=== PATIENT | male | born 1940 | race Caucasian/White ===

== ENCOUNTER 2017-07-09 11:56 | Emergency (ER) | payer MEDICARE, OTHER ==
[~2017-07-09] VITALS: Ht 170.2 cm; Wt 75.0 kg
[2017-07-09 14:42] LABS: BASOPHILS % 0.3 % (0.0-2.0); EOSINOPHILS % 1.2 % (0.0-5.0); HEMATOCRIT. 45.1 % (42.0-52.0); HEMOGLOBIN. 15.1 g/dL (14.0-18.0); LYMPHOCYTES % 7.8 % (20.0-50.0); MEAN CORPUSCULAR HEMOGLOBIN 30.6 pg (28.0-32.0); MEAN CORPUSCULAR VOLUME 91.7 fL (80.0-94.0); MEAN PLATELET VOLUME 8.6 fl (7.4-10.4); MONOCYTES % 7.2 % (2.0-8.0); NEUTROPHILS % 83.5 % (40.0-76.0); PLATELET 186 x1000/uL (130-400); RED BLOOD CELL COUNT 4.92 mill/uL (4.7-6.1); RED CELL DISTRIBUTION WIDTH 14.9 % (11.6-14.6)
[2017-07-09 14:46] LABS: PROTHROMBIN TIME 10.6 sec (9.4-11.6)
[2017-07-09 14:53] LABS: CHLORIDE 106 mEq/L (98-107)
[2017-07-09 14:59] LABS: CLARITY URINE CLOUDY (CLEAR); COLOR URINE DARK YELLOW (YELLOW); KETONES URINE NEGATIVE (NEGATIVE); LEUKOCYTE ESTERASE URINE NEGATIVE (NEGATIVE); NITRITE URINE NEGATIVE (NEGATIVE); OCCULT BLOOD URINE NEGATIVE (NEGATIVE); PROTEIN URINE 1+ (NEGATIVE); SPECIFIC GRAVITY URINE 1.022 (1.005-1.030); UROBILINOGEN URINE 0.2 E.U./dL (0.2-1.0)
[2017-07-09 16:36] VITALS: BP 158/67
== END 2017-07-09 16:46 | disposition home or self-care (01) ==
LOC: ER 12:31
DX: N43.3 Hydrocele, unspecified (principal); Z90.49 Acquired absence of other specified parts of digestive tract; Z85.840 Personal history of malignant neoplasm of eye
CPT/HCPCS: 36415; 76870; 80053; 81001; 85025; 85610; 93976; 99285

== ENCOUNTER 2017-10-10 20:55 | Emergency (ER) | payer MEDICARE, OTHER ==
[~2017-10-10] VITALS: Ht 177.8 cm; Wt 107.0 kg
[2017-10-11 01:15] VITALS: BP 136/78
== END 2017-10-11 01:16 | disposition home or self-care (01) ==
LOC: ER 21:43
DX: R60.0 Localized edema (principal); Z90.49 Acquired absence of other specified parts of digestive tract; Z98.890 Other specified postprocedural states
CPT/HCPCS: 99283

== ENCOUNTER 2019-05-06 14:12 | Emergency (ER) | payer MEDICARE, OTHER ==
[~2019-05-06] VITALS: Ht 165.1 cm; Wt 100.0 kg
[2019-05-06] MEDS ORDERED: KETOROLAC 30MG/ML VIAL IM ONE (21:30)
[2019-05-06 23:08] VITALS: BP 165/92
[2019-05-08] MEDS ORDERED: FURO-151 MT (04:45)
[2019-05-08] MEDS ORDERED: LISI2.5T47 MT (04:45)
== END 2019-05-06 23:10 | disposition home or self-care (01) ==
LOC: ER 14:12
DX: G89.29 Other chronic pain (principal); M54.5 Low back pain; I10 Essential (primary) hypertension; Z90.49 Acquired absence of other specified parts of digestive tract
CPT/HCPCS: 96372; 99283; J1885

== ENCOUNTER 2020-04-14 19:20 | Inpatient (IN) | payer MEDICARE, OTHER ==
[~2020-04-14] VITALS: Ht 170.2 cm; Wt 104.3 kg
[2020-04-14 19:20] VITALS: BP 146/80
[~2020-04-14 19:20] MED LIST: FURO-151 MT; LISI2.5T47 MT
[2020-04-14] MEDS: FAMOTIDINE 20MG TABLET PO SCH (22:27)
[2020-04-14] MEDS: ENOXAPARIN 30MG/0.3ML SYR SUBCUT SCH (22:28)
[2020-04-14] MEDS: LISINOPRIL 20MG TABLET PO SCH (22:28)
[2020-04-14] MEDS: SULFAMETHOXAZOLE/TRIMETHOPRIM 800/160MG TABLET PO SCH (22:28)
[2020-04-15] MEDS ORDERED: CLONIDINE 0.1MG TABLET PO PRN (02:00)
[2020-04-15] MEDS ORDERED: ZOLPIDEM TARTRATE 5MG TABLET PO PRN (02:00)
[2020-04-15] MEDS ORDERED: GUAIFENESIN 200MG/10ML SUGAR FREE UDC PO PRN (02:00)
[2020-04-15] MEDS ORDERED: ONDANSETRON HCL 4MG TABLET PO PRN (02:00)
[2020-04-15] MEDS ORDERED: MAGNESIUM/ALUMINUM HYDROXIDE/SIMETHICONE 30ML UDC PO PRN (02:00)
[2020-04-15] MEDS ORDERED: ACETAMINOPHEN 325MG TABLET PO PRN (02:00)
[2020-04-15 08:00] VITALS: BP 119/77
[2020-04-15] MEDS: DOCUSATE SODIUM 100MG CAPSULE PO SCH ×2 (09:00→17:30)
[2020-04-15] MEDS: SULFAMETHOXAZOLE/TRIMETHOPRIM 800/160MG TABLET PO SCH ×2 (10:49→20:39)
[2020-04-15] MEDS: FUROSEMIDE 40MG TABLET PO SCH (10:50)
[2020-04-15] MEDS: SODIUM CHLORIDE 0.9% INJ 3ML FLUSH IVF SCH ×3 (10:50→21:31)
[2020-04-15] MEDS: MAGNESIUM HYDROXIDE 400MG/5ML 30ML UDC PO PRN (10:51)
[2020-04-15] MEDS: ENOXAPARIN 30MG/0.3ML SYR SUBCUT SCH ×2 (10:52→21:30)
[2020-04-15] MEDS: LISINOPRIL 20MG TABLET PO SCH ×2 (10:53→20:39)
[2020-04-15] MEDS: POTASSIUM CHLORIDE 20MEQ TABLET SR PO SCH (10:56)
[2020-04-15 20:00] VITALS: BP 112/57
[2020-04-15] MEDS: FAMOTIDINE 20MG TABLET PO SCH (20:39)
[2020-04-15] MEDS: ALPRAZOLAM 0.25 MG TABLET PO PRN (21:57)
[2020-04-16] MEDS: MAGNESIUM HYDROXIDE 400MG/5ML 30ML UDC PO PRN (05:37)
[2020-04-16] MEDS: SODIUM CHLORIDE 0.9% INJ 3ML FLUSH IVF SCH ×3 (05:37→22:57)
[2020-04-16 08:00] VITALS: BP 125/73
[2020-04-16] MEDS: DOCUSATE SODIUM 100MG CAPSULE PO SCH ×2 (09:27→17:30)
[2020-04-16] MEDS: POTASSIUM CHLORIDE 20MEQ TABLET SR PO SCH (09:27)
[2020-04-16] MEDS: LISINOPRIL 20MG TABLET PO SCH ×2 (09:27→20:47)
[2020-04-16] MEDS: FUROSEMIDE 40MG TABLET PO SCH (09:28)
[2020-04-16] MEDS: SULFAMETHOXAZOLE/TRIMETHOPRIM 800/160MG TABLET PO SCH ×2 (09:28→20:47)
[2020-04-16] MEDS: ENOXAPARIN 30MG/0.3ML SYR SUBCUT SCH ×2 (09:28→20:48)
[2020-04-16] MEDS ORDERED: BISACODYL 10MG SUPP PR PRN (11:30)
[2020-04-16] MEDS ORDERED: NA PHOS,M-B/NA PHOS,DI-BA ENEMA 118ML PR PRN ×2 (12:45→13:45)
[2020-04-16] MEDS: LACTULOSE 20G/30ML UDC PO SCH ×2 (12:50→13:55)
[2020-04-16 20:00] VITALS: BP 125/68
[2020-04-16] MEDS: FAMOTIDINE 20MG TABLET PO SCH (20:47)
[2020-04-16] MEDS: ALPRAZOLAM 0.25 MG TABLET PO PRN (22:56)
[2020-04-17] MEDS ORDERED: LACTULOSE 20G/30ML UDC PO PRN
[2020-04-17] MEDS: SODIUM CHLORIDE 0.9% INJ 3ML FLUSH IVF SCH (06:46)
[2020-04-17 08:30] VITALS: BP 124/75
[2020-04-17] MEDS: FUROSEMIDE 40MG TABLET PO SCH (09:21)
[2020-04-17] MEDS: LISINOPRIL 20MG TABLET PO SCH ×2 (09:21→20:52)
[2020-04-17] MEDS: POTASSIUM CHLORIDE 20MEQ TABLET SR PO SCH (09:21)
[2020-04-17] MEDS: SULFAMETHOXAZOLE/TRIMETHOPRIM 800/160MG TABLET PO SCH ×2 (09:22→20:47)
[2020-04-17] MEDS: ENOXAPARIN 30MG/0.3ML SYR SUBCUT SCH ×2 (09:22→20:46)
[2020-04-17 20:00] VITALS: BP 114/70
[2020-04-17] MEDS: FAMOTIDINE 20MG TABLET PO SCH (20:46)
[2020-04-17] MEDS: ALPRAZOLAM 0.25 MG TABLET PO PRN (22:06)
[2020-04-18 08:28] VITALS: BP 133/79
[2020-04-18] MEDS: ENOXAPARIN 30MG/0.3ML SYR SUBCUT SCH ×2 (09:52→20:23)
[2020-04-18] MEDS: SULFAMETHOXAZOLE/TRIMETHOPRIM 800/160MG TABLET PO SCH ×2 (09:52→20:25)
[2020-04-18] MEDS: FUROSEMIDE 40MG TABLET PO SCH (09:52)
[2020-04-18] MEDS: LISINOPRIL 20MG TABLET PO SCH ×2 (09:52→20:24)
[2020-04-18] MEDS: POTASSIUM CHLORIDE 20MEQ TABLET SR PO SCH (09:52)
[2020-04-18 20:00] VITALS: BP 143/69
[2020-04-18] MEDS: FAMOTIDINE 20MG TABLET PO SCH (20:24)
[2020-04-18] MEDS: ALPRAZOLAM 0.25 MG TABLET PO PRN (20:25)
[2020-04-19 08:00] VITALS: BP 99/65
[2020-04-19] MEDS: POTASSIUM CHLORIDE 20MEQ TABLET SR PO SCH (08:24)
[2020-04-19] MEDS: FUROSEMIDE 40MG TABLET PO SCH (08:24)
[2020-04-19] MEDS: SULFAMETHOXAZOLE/TRIMETHOPRIM 800/160MG TABLET PO SCH ×2 (08:24→21:42)
[2020-04-19] MEDS: ENOXAPARIN 30MG/0.3ML SYR SUBCUT SCH ×2 (08:26→21:56)
[2020-04-19] MEDS: LISINOPRIL 20MG TABLET PO SCH ×2 (08:27→21:43)
[2020-04-19 20:00] VITALS: BP 138/78
[2020-04-19] MEDS: ALPRAZOLAM 0.25 MG TABLET PO PRN (21:42)
[2020-04-19] MEDS: FAMOTIDINE 20MG TABLET PO SCH (21:42)
[2020-04-20 07:56] VITALS: BP 117/67
[2020-04-20] MEDS: POTASSIUM CHLORIDE 20MEQ TABLET SR PO SCH (08:01)
[2020-04-20] MEDS: FUROSEMIDE 40MG TABLET PO SCH (08:01)
[2020-04-20] MEDS: LISINOPRIL 20MG TABLET PO SCH ×2 (08:01→21:00)
[2020-04-20] MEDS: ENOXAPARIN 30MG/0.3ML SYR SUBCUT SCH ×2 (08:01→21:56)
[2020-04-20 20:00] VITALS: BP 100/52
[2020-04-20] MEDS: FAMOTIDINE 20MG TABLET PO SCH (21:55)
[2020-04-20] MEDS: ALPRAZOLAM 0.25 MG TABLET PO PRN (23:42)
[2020-04-21] MEDS: FUROSEMIDE 40MG TABLET PO SCH (08:26)
[2020-04-21] MEDS: POTASSIUM CHLORIDE 20MEQ TABLET SR PO SCH (08:26)
[2020-04-21] MEDS: LISINOPRIL 20MG TABLET PO SCH ×2 (08:27→21:56)
[2020-04-21 08:30] VITALS: BP 103/80
[2020-04-21] MEDS: ENOXAPARIN 30MG/0.3ML SYR SUBCUT SCH ×2 (08:32→21:57)
[2020-04-21 20:08] VITALS: BP 117/55
[2020-04-21] MEDS: FAMOTIDINE 20MG TABLET PO SCH (21:56)
[2020-04-21] MEDS: PANTOT AC/MIN OIL/PET HY-PHL OINT (AQUAPHOR) TOP SCH (22:01)
[2020-04-21] MEDS: ALPRAZOLAM 0.25 MG TABLET PO PRN (22:40)
[2020-04-22 06:17] LABS: BASOPHILS % 0.6 % (0.0-2.0); EOSINOPHILS % 2.1 % (0.0-5.0); HEMATOCRIT. 47.6 % (42.0-52.0); LYMPHOCYTES % 12.6 % (20.0-50.0); MEAN CORPUSCULAR HEMOGLOBIN 32.5 pg (28.0-32.0); MEAN CORPUSCULAR VOLUME 96.7 fL (80.0-94.0); MONOCYTES % 8.9 % (2.0-8.0); NEUTROPHILS % 75.8 % (40.0-76.0); PLATELET 259 x1000/uL (130-400); RED BLOOD CELL COUNT 4.93 mill/uL (4.7-6.1); RED CELL DISTRIBUTION WIDTH 13.9 % (11.6-14.6)
[2020-04-22 08:28] VITALS: BP 116/61
[2020-04-22] MEDS: FUROSEMIDE 40MG TABLET PO SCH (08:33)
[2020-04-22] MEDS: ENOXAPARIN 30MG/0.3ML SYR SUBCUT SCH ×2 (08:34→21:11)
[2020-04-22] MEDS: POTASSIUM CHLORIDE 20MEQ TABLET SR PO SCH (08:34)
[2020-04-22] MEDS: PANTOT AC/MIN OIL/PET HY-PHL OINT (AQUAPHOR) TOP SCH (08:34)
[2020-04-22] MEDS: LISINOPRIL 20MG TABLET PO SCH ×2 (08:34→21:00)
[2020-04-22 20:00] VITALS: BP 102/62
[2020-04-22] MEDS: FAMOTIDINE 20MG TABLET PO SCH (21:11)
[2020-04-22] MEDS: ALPRAZOLAM 0.25 MG TABLET PO PRN (22:31)
[2020-04-23 08:00] VITALS: BP 105/63
[2020-04-23] MEDS: PANTOT AC/MIN OIL/PET HY-PHL OINT (AQUAPHOR) TOP SCH (08:48)
[2020-04-23] MEDS: POTASSIUM CHLORIDE 20MEQ TABLET SR PO SCH (08:49)
[2020-04-23] MEDS: ENOXAPARIN 30MG/0.3ML SYR SUBCUT SCH ×2 (08:49→21:40)
[2020-04-23] MEDS: LISINOPRIL 20MG TABLET PO SCH ×2 (08:49→21:40)
[2020-04-23] MEDS: FUROSEMIDE 40MG TABLET PO SCH (08:49)
[2020-04-23 20:00] VITALS: BP 116/69
[2020-04-23] MEDS: FAMOTIDINE 20MG TABLET PO SCH (21:40)
[2020-04-23] MEDS: ALPRAZOLAM 0.25 MG TABLET PO PRN (21:45)
[2020-04-24 08:00] VITALS: BP 138/84
[2020-04-24] MEDS: LISINOPRIL 20MG TABLET PO SCH (08:19)
[2020-04-24] MEDS: FUROSEMIDE 40MG TABLET PO SCH (08:19)
[2020-04-24] MEDS: POTASSIUM CHLORIDE 20MEQ TABLET SR PO SCH (08:19)
[2020-04-24] MEDS: PANTOT AC/MIN OIL/PET HY-PHL OINT (AQUAPHOR) TOP SCH (08:20)
[2020-04-24] MEDS: ENOXAPARIN 30MG/0.3ML SYR SUBCUT SCH (08:20)
[2020-04-24 09:29] VITALS: BP 138/84
== END 2020-04-24 10:50 | disposition home health service (06) | DRG 947 ==
PROVIDERS: ADMIT Psychiatry & Neurology Neurology; ATTEND Internal Medicine
DX: R53.81 Other malaise (principal); K57.93 Diverticulitis of intestine, part unspecified, without perforation or abscess with bleeding; L03.116 Cellulitis of left lower limb; L03.115 Cellulitis of right lower limb; I82.402 Acute embolism and thrombosis of unspecified deep veins of left lower extremity; I82.811 Embolism and thrombosis of superficial veins of right lower extremity; A04.72 Enterocolitis due to Clostridium difficile, not specified as recurrent; E87.1 Hypo-osmolality and hyponatremia; M48.56XA Collapsed vertebra, not elsewhere classified, lumbar region, initial encounter for fracture; I73.9 Peripheral vascular disease, unspecified; M21.962 Unspecified acquired deformity of left lower leg; M21.961 Unspecified acquired deformity of right lower leg; I87.2 Venous insufficiency (chronic) (peripheral); I11.9 Hypertensive heart disease without heart failure; I87.8 Other specified disorders of veins; B36.9 Superficial mycosis, unspecified; I25.10 Atherosclerotic heart disease of native coronary artery without angina pectoris; J44.9 Chronic obstructive pulmonary disease, unspecified; M19.90 Unspecified osteoarthritis, unspecified site; K57.90 Diverticulosis of intestine, part unspecified, without perforation or abscess without bleeding; Z90.49 Acquired absence of other specified parts of digestive tract; Z95.0 Presence of cardiac pacemaker
CPT/HCPCS: 36415; 80048; 85025; 97110; 97112; 97116; 97162; 97166; 97530; 97535; J1650

== ENCOUNTER 2022-03-09 14:45 | Emergency (ER) | payer MEDICARE, OTHER ==
[~2022-03-09] VITALS: Ht 167.6 cm; Wt 82.0 kg
[~2022-03-09 14:45] MED LIST changes: -LISI2.5T47 MT
[2022-03-09] MEDS ORDERED: PIPERACILLIN/TAZ 3.375G PREMIX 50 ML IV ONE (17:00)
[2022-03-09 17:20] LABS: BASOPHILS % 0.3 % (0.0-2.0); EOSINOPHILS % 1.9 % (0.0-5.0); HEMATOCRIT. 42.6 % (42.0-52.0); HEMOGLOBIN. 14.5 g/dL (14.0-18.0); LYMPHOCYTES % 9.8 % (20.0-50.0); MEAN CORPUSCULAR HEMOGLOBIN 32.4 pg (28.0-32.0); MEAN CORPUSCULAR VOLUME 94.9 fL (80.0-94.0); MEAN PLATELET VOLUME 8.6 fl (7.4-10.4); MONOCYTES % 6.4 % (2.0-8.0); NEUTROPHILS % 81.6 % (40.0-76.0); PLATELET 210 x1000/uL (130-400); RED BLOOD CELL COUNT 4.49 mill/uL (4.7-6.1)
[2022-03-09 17:21] LABS: CHLORIDE 109 mEq/L (98-107)
[2022-03-09 17:37] LABS: PROTHROMBIN TIME 10.8 sec (9.6-11.0)
[2022-03-09 19:05] LABS: CLARITY URINE CLEAR (CLEAR); COLOR URINE DARK YELLOW (YELLOW); KETONES URINE 1+ (NEGATIVE); LEUKOCYTE ESTERASE URINE TRACE (NEGATIVE); NITRITE URINE NEGATIVE (NEGATIVE); OCCULT BLOOD URINE NEGATIVE (NEGATIVE); PH URINE 6.5 (4.5-8.0); PROTEIN URINE TRACE (NEGATIVE); UROBILINOGEN URINE 0.2 E.U./dL (0.2-1.0)
[2022-03-09 21:00] VITALS: BP 166/90
== END 2022-03-09 21:20 | disposition home or self-care (01) ==
LOC: ER 14:45
DX: R53.1 Weakness (principal); R63.0 Anorexia; I10 Essential (primary) hypertension; R94.31 Abnormal electrocardiogram [ECG] [EKG]; Z68.29 Body mass index [BMI] 29.0-29.9, adult; Z85.828 Personal history of other malignant neoplasm of skin
CPT/HCPCS: 36415; 71045; 80053; 81003; 85025; 86850; 86900; 93005; 99285

== ENCOUNTER 2022-08-04 10:08 | Inpatient (IN) | payer MEDICARE, OTHER ==
[~2022-08-04] VITALS: Ht 172.7 cm; Wt 82.6 kg
[~2022-08-04 10:08] MED LIST changes: -FURO-151 MT; +OMEP20CA14 MT; +SUCR1TAB30 MT
[2022-08-04 11:47] LABS: HEMOGLOBIN. 14.8 g/dL (14.0-18.0); MEAN CORPUSCULAR HEMOGLOBIN 32.7 pg (28.0-32.0); MEAN CORPUSCULAR VOLUME 95.4 fL (80.0-94.0); MEAN PLATELET VOLUME 9.8 fl (7.4-10.4); PLATELET 234 x1000/uL (130-400); RED BLOOD CELL COUNT 4.51 mill/uL (4.7-6.1); RED CELL DISTRIBUTION WIDTH 14.3 % (11.6-14.6)
[2022-08-04 11:53] LABS: CHLORIDE 108 mEq/L (98-107)
[2022-08-04 12:14] LABS: PLATELET ESTIMATE NORMAL
[2022-08-04] MEDS ORDERED: SODIUM CHLORIDE 0.9% 1,000 ML IV ONE (12:45)
[2022-08-04 14:08] LABS: CLARITY URINE CLEAR (CLEAR); COLOR URINE YELLOW (YELLOW); KETONES URINE TRACE (NEGATIVE); LEUKOCYTE ESTERASE URINE NEGATIVE (NEGATIVE); NITRITE URINE NEGATIVE (NEGATIVE); OCCULT BLOOD URINE NEGATIVE (NEGATIVE); PROTEIN URINE TRACE (NEGATIVE); SPECIFIC GRAVITY URINE 1.013 (1.005-1.030); UROBILINOGEN URINE 0.2 E.U./dL (0.2-1.0)
[2022-08-04] MEDS ORDERED: GUAIFENESIN 200MG/10ML SUGAR FREE UDC PO PRN (17:45)
[2022-08-04] MEDS ORDERED: DOCUSATE SODIUM 100MG CAPSULE PO PRN (17:45)
[2022-08-04] MEDS ORDERED: MAGNESIUM/ALUMINUM HYDROXIDE/SIMETHICONE 30ML UDC PO PRN (17:45)
[2022-08-04] MEDS ORDERED: LORAZEPAM 0.5MG TABLET PO PRN (17:45)
[2022-08-04] MEDS ORDERED: ACETAMINOPHEN 325MG TABLET PO PRN ×2 (17:45)
[2022-08-04] MEDS ORDERED: ONDANSETRON HCL 4MG/2ML INJ IV PRN (17:45)
[2022-08-04] MEDS ORDERED: VANCOMYCIN 1G PREMIX 200 ML IV SCH (17:45)
[2022-08-04] MEDS ORDERED: IPRATROPIUM/ALBUTEROL 0.5-3(2.5)MG/3ML NEB HHN PRN (17:45)
[2022-08-04] MEDS ORDERED: CLONIDINE 0.1MG TABLET PO PRN (17:45)
[2022-08-04] MEDS ORDERED: HYDROCODONE/ACETAMINOPHEN 5/325MG TABLET PO PRN (17:45)
[2022-08-04] MEDS ORDERED: PIPERACILLIN/TAZ 3.375G PREMIX 50 ML IV NR (18:11)
[2022-08-04] MEDS ORDERED: VANCOMYCIN 1500MG in DEXTROSE 5% WATER 250ML IV SCH (18:30)
[2022-08-04] MEDS ORDERED: SODIUM POLYSTYRENE SULFONATE 15 G/60 ML BOT PO NR (19:00)
[2022-08-04] MEDS: FAMOTIDINE 20MG/2ML VIAL IV SCH (22:09)
[2022-08-04] MEDS: ENOXAPARIN 40MG/0.4ML SYR SUBCUT SCH (22:14)
[2022-08-04] MEDS: AMLODIPINE 10MG TABLET PO SCH (22:19)
[2022-08-04] MEDS: DEXT 5%/0.45% NACL 1000ML 1,000 ML IV SCH (23:30)
[2022-08-05] VITALS: BP 146/78
[2022-08-05 04:00] VITALS: BP 150/95
[2022-08-05] MEDS ORDERED: PIPERACILLIN/TAZOBACTAM 3.375 G in DEXTROSE 5% WATER 50 ML IV SCH (06:00)
[2022-08-05 09:00] LABS: BASOPHILS % 0.3 % (0.0-2.0); EOSINOPHILS % 1.6 % (0.0-5.0); LYMPHOCYTES % 7.1 % (20.0-50.0); MEAN CORPUSCULAR HEMOGLOBIN 31.8 pg (28.0-32.0); MEAN CORPUSCULAR VOLUME 95.1 fL (80.0-94.0); MONOCYTES % 8.5 % (2.0-8.0); NEUTROPHILS % 82.5 % (40.0-76.0); PLATELET 197 x1000/uL (130-400); RED BLOOD CELL COUNT 4.73 mill/uL (4.7-6.1); RED CELL DISTRIBUTION WIDTH 13.9 % (11.6-14.6)
[2022-08-05] MEDS ORDERED: VANCOMYCIN 750MG PREMIX 150 ML IV SCH (09:00)
[2022-08-05] MEDS ORDERED: FUROSEMIDE 40MG/4ML VIAL IV SCH (09:00)
[2022-08-05] MEDS: AMLODIPINE 10MG TABLET PO SCH (09:08)
[2022-08-05] MEDS: FAMOTIDINE 20MG/2ML VIAL IV SCH ×2 (09:08→23:00)
[2022-08-05 09:25] LABS: CHLORIDE 107 mEq/L (98-107)
[2022-08-05 09:41] LABS: HDL CHOLESTEROL 40 mg/dL (40-59); LDL CHOLESTEROL 104 mg/dL (5-100); T4 FREE 1.08 ng/dL (0.76-1.46)
[2022-08-05] MEDS: VANCOMYCIN 750MG PREMIX 150 ML IV SCH ×2 (11:19→23:01)
[2022-08-05] MEDS: PIPERACILLIN/TAZOBACTAM 3.375 G in DEXTROSE 5% WATER 50 ML IV SCH ×3 (11:19→23:14)
[2022-08-05 12:00] VITALS: BP 168/98
[2022-08-05 16:00] VITALS: BP 127/69
[2022-08-05] MEDS ORDERED: ALBUTEROL (0.083%) 2.5MG/3ML NEB HHN PRN (16:15)
[2022-08-05] MEDS ORDERED: IPRATROPIUM BROMIDE (0.02%) 0.5MG/2.5ML NEB HHN PRN (16:15)
[2022-08-05] MEDS ORDERED: NALOXONE HCL 0.4MG/ML VIAL IV PRN (16:15)
[2022-08-05] MEDS: LOSARTAN POTASSIUM 25 MG TABLET PO SCH (17:15)
[2022-08-05] MEDS: DEXT 5%/0.45% NACL 1000ML 1,000 ML IV SCH (18:30)
[2022-08-05 20:00] VITALS: BP 148/65
[2022-08-05] MEDS: ENOXAPARIN 40MG/0.4ML SYR SUBCUT SCH (23:00)
[2022-08-06] VITALS: BP 137/71
[2022-08-06 04:00] VITALS: BP 162/79
[2022-08-06] MEDS: PIPERACILLIN/TAZOBACTAM 3.375 G in DEXTROSE 5% WATER 50 ML IV SCH ×3 (05:46→22:37)
[2022-08-06 07:24] LABS: CHLORIDE 110 mEq/L (98-107)
[2022-08-06 08:00] VITALS: BP 164/86
[2022-08-06] MEDS: AMLODIPINE 10MG TABLET PO SCH (09:06)
[2022-08-06] MEDS: VANCOMYCIN 750MG PREMIX 150 ML IV SCH (09:06)
[2022-08-06] MEDS: FAMOTIDINE 20MG/2ML VIAL IV SCH (10:45)
[2022-08-06 12:00] VITALS: BP 133/73
[2022-08-06 16:00] VITALS: BP 123/65
[2022-08-06] MEDS: LOSARTAN POTASSIUM 25 MG TABLET PO SCH (17:12)
[2022-08-06 20:00] VITALS: BP 148/80
[2022-08-06] MEDS ORDERED: MEDICATION NOT ON FORMULARY EA (MELATONIN 3 MG) PO SCH (21:00)
[2022-08-06] MEDS: FAMOTIDINE 20MG TABLET PO SCH (22:37)
[2022-08-06] MEDS: ENOXAPARIN 40MG/0.4ML SYR SUBCUT SCH (22:37)
[2022-08-06] MEDS: MELATONIN 3MG TABLET PO SCH (22:37)
[2022-08-07] VITALS: BP 119/57
[2022-08-07 04:00] VITALS: BP 146/83
[2022-08-07] MEDS: VANCOMYCIN 1G PREMIX 200 ML IV SCH ×2 (05:22→23:26)
[2022-08-07] MEDS: PIPERACILLIN/TAZOBACTAM 3.375 G in DEXTROSE 5% WATER 50 ML IV SCH ×3 (07:00→21:43)
[2022-08-07] MEDS ORDERED: POTASSIUM CHLORIDE 20MEQ TABLET SR PO NR (08:30)
[2022-08-07] MEDS: FAMOTIDINE 20MG TABLET PO SCH ×2 (08:45→21:42)
[2022-08-07] MEDS: AMLODIPINE 10MG TABLET PO SCH (08:45)
[2022-08-07 12:00] VITALS: BP 103/70
[2022-08-07] MEDS: OLANZAPINE 5MG TABLET ODT PO SCH ×2 (14:25→18:42)
[2022-08-07 16:00] VITALS: BP 122/67
[2022-08-07] MEDS ORDERED: LOSA25TA3 PO (17:02)
[2022-08-07] MEDS ORDERED: AMLO10TA80 PO (17:02)
[2022-08-07] MEDS ORDERED: OLAN5TAB6 PO (17:02)
[2022-08-07] MEDS ORDERED: DOXY150T5 MT (17:03)
[2022-08-07] MEDS ORDERED: AMOX250S70 GT (17:05)
[2022-08-07] MEDS ORDERED: DOXY150T5 PO (17:07)
[2022-08-07] MEDS ORDERED: AMOX250S70 PO (17:12)
[2022-08-07] MEDS: LOSARTAN POTASSIUM 25 MG TABLET PO SCH (18:41)
[2022-08-07 20:00] VITALS: BP 123/71
[2022-08-07] MEDS: ENOXAPARIN 40MG/0.4ML SYR SUBCUT SCH (21:42)
[2022-08-07] MEDS: MELATONIN 3MG TABLET PO SCH (21:43)
[2022-08-08] MEDS: VANCOMYCIN 1G PREMIX 200 ML IV SCH
[2022-08-08] MEDS: PIPERACILLIN/TAZOBACTAM 3.375 G in DEXTROSE 5% WATER 50 ML IV SCH (05:23)
[2022-08-08 07:07] LABS: HEMATOCRIT. 44.3 % (42.0-52.0); HEMOGLOBIN. 15.2 g/dL (14.0-18.0); MEAN CORPUSCULAR HEMOGLOBIN 32.5 pg (28.0-32.0); MEAN CORPUSCULAR VOLUME 94.6 fL (80.0-94.0); MEAN PLATELET VOLUME 9.6 fl (7.4-10.4); PLATELET 206 x1000/uL (130-400); RED BLOOD CELL COUNT 4.68 mill/uL (4.7-6.1); RED CELL DISTRIBUTION WIDTH 13.9 % (11.6-14.6)
[2022-08-08 08:00] VITALS: BP 144/89
[2022-08-08] MEDS: OLANZAPINE 5MG TABLET ODT PO SCH (09:14)
[2022-08-08] MEDS: FAMOTIDINE 20MG TABLET PO SCH (09:14)
[2022-08-08] MEDS: AMLODIPINE 10MG TABLET PO SCH (09:14)
[2022-08-08 10:27] LABS: PHOSPHORUS 2.9 mg/dL (2.5-4.9)
[2022-08-08 12:00] VITALS: BP 106/58
[2022-08-08 16:00] VITALS: BP 126/60
[2022-08-08 17:02] VITALS: BP 144/89
[2022-08-08 21:44] LABS: PLATELET ESTIMATE NORMAL
== END 2022-08-08 17:22 | disposition home health service (06) | DRG 872 ==
LOC: ER 10:08 → 6EST 15:49 → EDBEDREQTM 16:00 → EDBEDREQ 16:00 → SUPCPDRO 22:08
PROVIDERS: ADMIT Internal Medicine; ATTEND Internal Medicine
DX: A41.9 Sepsis, unspecified organism (principal); L03.115 Cellulitis of right lower limb; E87.5 Hyperkalemia; I16.0 Hypertensive urgency; F17.210 Nicotine dependence, cigarettes, uncomplicated; N43.3 Hydrocele, unspecified; Z20.822 Contact with and (suspected) exposure to COVID-19; I10 Essential (primary) hypertension; K57.90 Diverticulosis of intestine, part unspecified, without perforation or abscess without bleeding; J44.9 Chronic obstructive pulmonary disease, unspecified; K21.9 Gastro-esophageal reflux disease without esophagitis; I73.9 Peripheral vascular disease, unspecified; F39 Unspecified mood [affective] disorder; Z79.899 Other long term (current) drug therapy; Z85.828 Personal history of other malignant neoplasm of skin
CPT/HCPCS: 36415; 71045; 80048; 80053; 80061; 80202; 81003; 83036; 83605; 83735; 84100; 84145; 84439; 84443; 84481; 84484; 85025; 92610; 93005; 93306; 93923; 93970; 97162; 99285; J1650; J2543; J3370; J3490; J7030; J7060